=== PATIENT | male | born 1985 | race Caucasian/White ===

== ENCOUNTER 2024-07-02 08:18 | Day surgery (SDC) | payer BC ==
[2024-07-02 08:34] VITALS: RESP 18; O2SAT 98
[2024-07-02] MEDS: Lactated Ringers 1,000 ML IV SCH (08:47)
[2024-07-02] MEDS ORDERED: Xylocaine-Mpf 2% 5 Ml Vial ONE (11:27)
[2024-07-02] MEDS ORDERED: DIPRIVAN 200 MG/20 ML IV ONE ×2 (11:28)
[2024-07-02] MEDS ORDERED: Versed 2 MG/2 ML Injection ONE (11:28)
[2024-07-02 12:20] VITALS: TEMP 98.2
[2024-07-02 12:28] VITALS: BP 164/98; PULSE 80
--- NOTE | 2024-07-03 08:40 | OP ---
SURGERY DATE/TIME: 07/02/2024 1133 - 1154 PREOPERATIVE DIAGNOSIS: Gastrointestinal bleeding. POSTOPERATIVE DIAGNOSES: 1) Gastrointestinal bleeding, favor internal hemorrhoids. 2) Very minimal gastritis. 3) Hyperplastic colon polyp, 2 mm, rectum. PROCEDURES: 1) Esophagogastroduodenoscopy. 2) Colonoscopy with polypectomy. SURGEON: Miles Goode MD ANESTHESIA: IV anesthesia. PATIENT CONDITION: Stable. COMPLICATIONS: None. SPECIMENS: 1) Antral biopsy for H pylori. 2) Hyperplastic rectal polyp, 2 mm. INDICATIONS: Patient is a 39-year-old male who reports bright red blood per rectum. He does have a history of gastric ulcer. Had not really been taking his PPI for that. It does appear to be more bright than melenic, but he does want to proceed with endoscopy. FINDINGS: 1) Just very minimal erythema in the stomach. Biopsies taken for H pylori. This does not appear to be any source for bleeding. There is no ulcer. 2) On colonoscopy, there is a good preparation. Internal hemorrhoids, just moderate, favored source. Certainly not bleeding now. DESCRIPTION OF PROCEDURE AND FINDINGS: Patient was brought to the endoscopy suite. Routinely positioned, prepared, and time-out performed. IV anesthesia induced by Anesthesia. The gastroscope was inserted through the mouth and advanced to the third portion of the duodenum. Duodenum is normal in appearance. The stomach just with very minimal erythema, but essentially normal. The prior ulcer is totally healed. A biopsy is taken of the antrum to rule out H pylori. The esophagus is normal. Scope withdrawn, no issues. Digital rectal exam externally is normal. There are no external hemorrhoids. The internal just with moderate internal hemorrhoids. Scope is inserted and advanced to the terminal ileum. Images taken of the appendiceal orifice, terminal ileum, and ileocecal valve. Withdrawal time is greater than 6 minutes. The Aronchick preparation is Aronchick good. On withdrawal, there is a 2 mm hyperplastic polyp at the rectum taken with cold forceps, sent for Pathology. Retroflexion just shows some moderate internal hemorrhoids. Certainly no bleeding, no ulcerations. Scope is withdrawn. The patient tolerated the procedure well. RECOMMENDATIONS: He really could wean off the PPI. Favor internal hemorrhoids as the source of bleeding. Recommend a high-fiber diet and bowel regimen and avoid constipation. If he is having continued issues, could consider a rubber band ligation of internal hemorrhoids.
== END 2024-07-02 12:36 | disposition home or self-care (01) ==
LOC: SDC 08:18
PROVIDERS: ATTEND Surgery
DX: K92.2 Gastrointestinal hemorrhage, unspecified (principal); K63.5 Polyp of colon; K64.8 Other hemorrhoids
CPT/HCPCS: J2250; J2704